=== PATIENT | female | born 1940 | race Caucasian/White ===

== ENCOUNTER → 2017-02-27 | Outpatient (CLI) | payer MEDICARE, OTHER ==
[2014-11-12 14:43] VITALS: BP 144/84
[~2017-02-27] MED LIST: ATOR20TA PO; BACL10TA PO; BUPR150T8 PO; CALC500T50 PO; CARV20CP PO; ESOM40CA PO; FEXO60TA25 PO; FLUT16SP2 NS; LEVO500T38 PO; OMEG300C PO; OXYB1PAT4 TD; TELM40TA PO; VILA40TA PO; VIT1TABL32 PO
--- NOTE | 2017-02-27 15:59 | RAD ---
Indication liver cysts. Grayscale images were obtained. Examination was targeted to the right upper quadrant. No similar imaging is available. Note is made of a CT examination 09/06/2014 referencing hepatic cysts. The gallbladder appears normal. The common bile diameter of approximately 3 mm is normal. Compatible with the referenced CT are two hepatic cysts, the largest measuring approximately 2 cm and the smaller approximately 1.6 cm. The right kidney appears unremarkable. The visualized pancreas appeared unremarkable. That portion of the IVC which was seen appeared unremarkable IMPRESSION: Hepatic cysts
== END | disposition home or self-care (01) ==
LOC: US 08:37
PROVIDERS: ATTEND Family Medicine
DX: K76.89 Other specified diseases of liver (principal)
CPT/HCPCS: 76705

== ENCOUNTER → 2018-03-03 | Outpatient (CLI) | payer MEDICARE, OTHER ==
[2014-11-12 14:43] VITALS: BP 144/84
[~2018-03-03] MED LIST changes: -CALC500T50 PO; +CALC500T54 PO; -LEVO500T38 PO; +LEVO500T59 PO
--- NOTE | 2018-03-03 10:40 | RAD ---
Chest, 2 views, 03/03/2018: History: Shortness of breath Comparison is made to a study from 11/09/2014. The heart size and pulmonary vascularity are normal. No pulmonary infiltrate is seen. There is no evidence of pleural fluid. Mild spurring is present in the spine. IMPRESSION: No acute cardiopulmonary abnormality is detected.
== END | disposition home or self-care (01) ==
LOC: RAD 10:00
PROVIDERS: ATTEND Internal Medicine Pulmonary Disease
DX: R06.02 Shortness of breath (principal)
CPT/HCPCS: 71046

== ENCOUNTER → 2019-06-17 | Outpatient (CLI) | payer MEDICARE, OTHER ==
[2014-11-12 14:43] VITALS: BP 144/84
[2019-06-17 11:18] LABS: ALBUMIN 3.7 g/dL (3.4-5.0); ALBUMIN/GLOBULIN RATIO 1.2 (1.0-1.7); CALCIUM 9.6 mg/dL (8.5-10.1); CREATININE 1.1 mg/dL (0.6-1.0); MAGNESIUM 1.7 mg/dL (1.8-2.4); PHOSPHORUS 3.9 mg/dL (2.6-4.7); TOTAL BILIRUBIN 0.4 mg/dL (0.2-1.0); TOTAL PROTEIN 6.9 g/dL (6.4-8.2)
[2019-06-17 22:07] LABS: CALCIUM PTH 9.6 mg/dL (8.7-10.3); CREATININE PTH 1.03 mg/dL (0.57-1.00); PTH INTACT 36 pg/mL (15-65)
== END | disposition home or self-care (01) ==
LOC: LAB 10:42
PROVIDERS: ATTEND Family Medicine
DX: E83.51 Hypocalcemia (principal)
CPT/HCPCS: 36415; 80053; 82330; 83735; 83970; 84100

== ENCOUNTER → 2019-10-20 | Outpatient (CLI) | payer MEDICARE, OTHER ==
[2014-11-12 14:43] VITALS: BP 144/84
[2019-10-20 10:34] LABS: ALBUMIN 3.4 g/dL (3.4-5.0); GFR 53.5; TOTAL BILIRUBIN 0.3 mg/dL (0.2-1.0); TOTAL PROTEIN 6.9 g/dL (6.4-8.2)
--- NOTE | 2019-10-20 10:50 | RAD ---
EXAM: Dual energy x-ray absorptiometry (DEXA). HISTORY: Post menopausal screening. TECHNIQUE: Dual energy x-ray absorptiometry of the lumbar spine and the right hip was performed. T-score of average bone mineral density based was calculated based on standard deviations above or below the expected young adult normal value. Diagnostic definitions were established by the [employer]. FINDINGS: The average bone mineral density associated with L1-L4 is 1.204 g/cm^2, corresponding with a T-score of 1.9. The average total bone mineral density associated with both hips is 1.119 g/cm^2, corresponding with a T-score of 1.3. In comparison with the prior study of 08/21/2016, average bone mineral density at the lumbar spine has changed +1.2%, while the average density at the right hip has changed +1.6%. Refer to the worksheets for full detail. IMPRESSION: 1. Normal. Average bone mineral density yields a T-score of -1.0 or greater. Fracture risk is low. Electronically signed by: Kat Melgar MD (10/20/2019 10:47 AM) [facility]
== END | disposition home or self-care (01) ==
LOC: DXRAD 09:45
PROVIDERS: ATTEND Nurse Practitioner Family
DX: Z13.820 Encounter for screening for osteoporosis (principal); Z78.0 Asymptomatic menopausal state
CPT/HCPCS: 36415; 77080; 80053